=== PATIENT | male | born 1955 | race Caucasian/White ===

== ENCOUNTER 2017-03-29 16:00 | Outpatient (CLI) | payer BC | END 2017-03-29 19:06 | disposition home or self-care (01) | LOC: SRD 16:00 | PROVIDERS: ATTEND Internal Medicine | DX: M21.922 Unspecified acquired deformity of left upper arm (principal); M13.812 Other specified arthritis, left shoulder | CPT/HCPCS: 73030 ==

== ENCOUNTER 2018-05-12 14:40 | Outpatient (CLI) | payer BC | END 2018-05-12 19:56 | disposition home or self-care (01) | LOC: SUS 14:40 | PROVIDERS: ATTEND Internal Medicine | DX: M17.11 Unilateral primary osteoarthritis, right knee (principal); N43.3 Hydrocele, unspecified; I86.1 Scrotal varices | CPT/HCPCS: 73564; 76870-TC ==

== ENCOUNTER 2018-09-29 15:47 | Emergency (ER) | payer BC ==
[~2018-09-29] VITALS: Ht 180.3 cm; Wt 124.7 kg
[2018-09-29 15:58] VITALS: BP_SYST 133
[2018-09-29 16:34] LABS: EOSINOPHILS # (AUTO) 0.3 K/uL (0.0-0.4)
[2018-09-29 16:41] LABS: BASOPHILS # (AUTO) 0.1 K/uL (0.0-0.2); BASOPHILS % (AUTO) 0.6 % (0.0-2.0); EOSINOPHILS % (AUTO) 2.8 % (0.0-4.0); HEMOGLOBIN 11.7 g/dL (14.0-18.0); LYMPHOCYTES # (AUTO) 1.7 K/uL (1.0-5.5); LYMPHOCYTES % (AUTO) 18.2 % (20.5-51.5); MEAN CORPUSCULAR HEMOGLOBIN 29 pg (27-31); MEAN CORPUSCULAR HGB CONC 33 % (32-36); MEAN CORPUSCULAR VOLUME 88 fL (79.0-98.0); MONOCYTES # (AUTO) 0.9 K/uL (0.0-1.0); MONOCYTES % (AUTO) 9.5 % (1.7-9.3); NEUTROPHILS # (AUTO) 6.4 K/uL (1.8-7.7); NEUTROPHILS % (AUTO) 68.9 % (40.0-70.0); PLATELET COUNT (AUTO) 363 K/uL (130-430); RED BLOOD CELL COUNT(AUTO) 4.08 MIL/uL (4.2-6.2); RED CELL DISTRIBUTION WIDTH 13.1 % (9.0-15.0); WHITE BLOOD COUNT (AUTO) 9.4 K/uL (4.8-10.8)
[2018-09-29 16:45] LABS: INR 0.9 (0.80-1.20); PROTHROMBIN TIME 9.6 SECS (9.5-12.5)
[2018-09-29 16:47] LABS: CREATININE 1.09 mg/dL (0.55-1.30); POTASSIUM 4.3 mmol/L (3.5-5.1)
[2018-09-29 16:49] LABS: ALBUMIN 2.8 g/dL (3.4-4.8); TOTAL BILIRUBIN 0.7 mg/dL (0.0-1.0)
[2018-09-29 18:56] VITALS: BP_SYST 112
== END 2018-09-29 18:54 | disposition home or self-care (01) ==
LOC: SED 15:47
DX: L03.115 Cellulitis of right lower limb (principal); I10 Essential (primary) hypertension; Z96.651 Presence of right artificial knee joint
CPT/HCPCS: 36415; 80053; 85025; 85379; 85610-TC; 93970; 99284

== ENCOUNTER 2022-07-02 07:25 | Day surgery (SDC) | payer OTHER ==
[~2022-07-02] VITALS: Ht 177.8 cm; Wt 127.0 kg
[2022-07-02] MEDS ORDERED: MORPHINE 4 MG INJ. 4 MG/ML VIAL IVP PRN ×2 (11:00)
[2022-07-02] MEDS ORDERED: KETOROLAC TROMETHAMINE 30 MG VIAL IVP PRN (11:00)
[2022-07-02] MEDS ORDERED: ONDANSETRON HCL 4 MG/2 ML VIAL IVP PRN (11:00)
[2022-07-02] MEDS ORDERED: CEFAZOLIN 1 GM IVPB PREMIX 50 ML IV ONE (11:08)
[2022-07-02] MEDS ORDERED: LIDOCAINE 1% 10 MG/ML, 20 ML MDV ONE (11:08)
[2022-07-02] MEDS ORDERED: MIDAZOLAM HCL 5 MG/ML VIAL (VERSED) IV ONE (11:08)
[2022-07-02] MEDS ORDERED: LIDOCAINE/EPI MPF 2%1:200000 10 ML VIAL INJ ONE (11:08)
[2022-07-02] MEDS ORDERED: fentaNYL CITRATE/PF 100 MCG/2 ML AMP ONE (11:08)
[2022-07-02] MEDS ORDERED: CEFAZOLIN 2 GM IVPB PREMIX 50 ML IV ONE (11:08)
[2022-07-02] MEDS ORDERED: LR 1,000 ML IV.SOLN IV ONE (11:08)
[2022-07-02] MEDS ORDERED: PROPOFOL 200MG/ 20ML VIAL (DIPRIVAN) IV ONE (11:08)
[2022-07-02] MEDS ORDERED: NS IRRIG SOLN 1000 ML IR ONE (11:08)
[2022-07-02 15:35] VITALS: BP_SYST 127
== END 2022-07-02 12:35 | disposition home or self-care (01) ==
LOC: SDS 07:25 → SMU 07:27 → SDS 12:35
PROVIDERS: ATTEND Orthopaedic Surgery Sports Medicine
DX: G56.03 Carpal tunnel syndrome, bilateral upper limbs (principal); G56.23 Lesion of ulnar nerve, bilateral upper limbs; I10 Essential (primary) hypertension; G62.9 Polyneuropathy, unspecified; M81.0 Age-related osteoporosis without current pathological fracture; E66.01 Morbid (severe) obesity due to excess calories; Z85.46 Personal history of malignant neoplasm of prostate; Z20.822 Contact with and (suspected) exposure to COVID-19; Z79.899 Other long term (current) drug therapy
CPT/HCPCS: 36415 ×2; 64719; 64721; 87426; U0003; J0690 ×2; J2001; J2250; J2704; J3010; J7120